=== PATIENT | male | born 2005 | race African-American/Black ===

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

== ENCOUNTER 2024-08-07 07:39 | Outpatient (CLI) | payer BC, SELFPAY ==
--- NOTE | 2024-08-07 | ECHO_ITS ---
Patient Info Name: Lonny Anaya Age: 18 years : 2005 Gender: Male Ht: 70 in Wt: 195 lbs BSA: 2.11 m2 HR: 61 bpm BP: 159 / 87 mmHg Technical Quality: Good Exam Date: 08/07/2024 7:58 AM Exam Location: Echo Lab Patient Status: Outpatient Admit Date: 08/07/2024 Staff Ordering Physician: Joni Metzger MD Outboard Motor Tester: Tigist Buck RDCS Attending Provider: Joni Metzger MD Referring Physician: Yassine BAIRD; Exam Type: CA echo doppler color flow Study Info Indications R06.02 - Shortness of breath Complete two-dimensional, color flow and Doppler transthoracic echocardiogram is performed. Strain analysis performed. Summary 1. Complete two-dimensional, color flow and Doppler transthoracic echocardiogram is performed. 2. Left ventricular chamber dimension is normal. 3. Left ventricular systolic function is normal, estimated at 60-65%. 4. There is mild asymmetric septal increased left ventricular wall thickness. 5. The left ventricular diastolic function is normal. 6. E/e' 6 is not elevated. 7. Global longitudinal strain is abnormal at -15.2%. 8. There is trace mitral valve regurgitation. 9. There is mild tricuspid valve regurgitation. 10. No pulmonary hypertension, estimated pulmonary arterial systolic pressure is 27 mmHg. 11. There is trace pulmonic regurgitation. Left Ventricle E/e' 6 is not elevated. Global longitudinal strain is abnormal at -15.2%. Left ventricular chamber dimension is normal. Left ventricular systolic function is normal, estimated at 60-65%. There is mild asymmetric septal increased left ventricular wall thickness. The left ventricular diastolic function is normal. Right Ventricle Right ventricular chamber dimension is normal. Right ventricular systolic function is normal. Left Atria Left atrial chamber dimension is normal. Right Atria Right atrial chamber dimension is normal. Aortic Valve The aortic valve is trileaflet. There is no aortic valve stenosis. There is no aortic valve regurgitation. Pulmonic Valve There is trace pulmonic regurgitation. Mitral Valve There is no mitral valve stenosis. There is trace mitral valve regurgitation. Tricuspid Valve There is mild tricuspid valve regurgitation. No pulmonary hypertension, estimated pulmonary arterial systolic pressure is 27 mmHg. Pericardium/Pleural There is no pericardial effusion. Inferior Vena Cava Normal inferior vena cava with >50% collapse upon inspiration consistent with normal right atrial pressure, 5 mmHg. Aorta The aortic root size at the sinus of Valsalva is normal. Left Ventricular Outflow Tract Name Value Normal LVOT 2D LVOT Diameter 2.1 cm LVOT Doppler LVOT Peak Gradient 3 mmHg LVOT Mean Gradient 2 mmHg LVOT VTI 18 cm LVOT VTI/AV VTI Ratio 0.9 LVOT Stroke Volume 66 ml LVOT CO 3.9 l/min LVOT CI 1.8 l/min/m2 Pulmonic Valve Name Value Normal
== END 2024-08-07 07:40 | disposition home or self-care (01) ==
PROVIDERS: PCP Emergency Medicine; Visit Provider Emergency Medicine
DX: I07.1 Rheumatic tricuspid insufficiency (principal)
CPT/HCPCS: 93306

== ENCOUNTER 2024-08-07 08:21 | Emergency (ER) | payer BC, SELFPAY ==
[2024-08-07 08:24] VITALS: BP 153/85; PULSE 81; RESP 18; TEMP 36.4; O2SAT 100
--- NOTE | 2024-08-07 08:46 | ED.MALEGU ---
HPI - Male Genitourinary General Chief complaint: Urogenital-Male Stated complaint: STD test Time Seen by Provider: 08/07/24 08:36 Source: patient Mode of arrival: ambulatory Limitations: no limitations History of Present Illness HPI Narrative: Patient presents requesting STI testing. Does not use condoms with all sexual encounters. Sexually active with women only. 1 sexual partner in the past month. No known exposure although he was concerned because she had a cold sore. Would like testing for all STIs including initially requested herpes testing. Engages in penile/vaginal and penile/oral intercourse. No penile/anal intercourse. No history of STIs. No fevers, penile/scrotal pain, no penile or oral lesions. Related Data Allergies Allergy/AdvReac Type Severity Reaction Status Date / Time No Known Allergies Allergy Verified 08/05/21 22:36 [facility] Past Medical History Medical History Hypertension Social History Social History Smoking status: Never smoker Alcohol intake: never Sexual Orientation (if Verbalized by the Patient): Straight or Heterosexual Exam Narrative: GENERAL: Well-appearing, well-nourished, and in no acute distress. HEAD: Normocephalic, atraumatic. EYES: Non injected, non icteric ENT: Nares clear, no rhinorrhea or epistaxis. No oral/lip/buccal lesions. Normal mucosa and tongue. NECK: Supple. CHEST: Speaking in full sentences. No respiratory distress. HEART: Regular rate and rhythm. . ABDOMEN: Soft, nondistended. : Normal male external genitalia. Circumcised. No penile discharge. No lesions on penis or scrotum. No scrotal edema/swelling. No tenderness to palpation. No inguinal lymphadenopathy. EXTREMITIES: Normal range of motion. No lower extremity edema. SKIN: Warm, dry, no rash. NEURO: No focal deficits. Alert and oriented x3. PSYCH: Normal mood and affect. Course Vital Signs Vital signs: Vital Signs Temperature 97.6 F 08/07/24 08:24 Pulse Rate 81 08/07/24 08:24 Respiratory Rate 18 08/07/24 08:24 Blood Pressure 153/85 H 08/07/24 08:24 Pulse Oximetry 100 08/07/24 08:24 Oxygen Delivery Room Air 10/17/24 08:24 Temperature 98.1 F 08/07/24 10:59 Pulse Rate 81 08/07/24 10:59 Respiratory Rate 12 08/07/24 10:59 Blood Pressure 137/82 08/07/24 10:59 Pulse Oximetry 99 08/07/24 10:59 Oxygen Delivery Room Air 08/07/24 08:24 MDM - Male Genitourinary MDM Narrative Medical decision making narrative: Patient presents requesting STI testing. Sexually active with 1 female partner in the past month. Asympatomatic and otherwise without known exposure though he was concerned because he thought she might have a cold sore/canker sore/oral or lip lesion. in the emergency department he is afebrile with vital signs notable for hypertension. Patient had requested herpes testing but discussed this, no active lesion. In addition to gonorrhea/chlamydia/trich testing, he is amenable and would like testing for syphillis and HIV. STI testing negative. Patient is advised on safe sex practices and he verifies understanding. No antibiotics given. Discharged home in stable condition. Lab Data Attestation: I reviewed the patient's lab results. Lab results narrative: Urinalysis unremarkable Labs: Lab Results 08/07/24 08/07/24 Range/Units 08:56 09:42 Urine Color Yellow (Yellow) Urine Appearance Clear (Clear) Urine pH 6.5 (5.0-9.0) Ur Specific Mcandrews 1.008 (1.001-1.035) Urine Protein Negative (Negative) mg/dL Urine Glucose (UA) Negative (Negative) mg/dL Urine Ketones Negative (Negative) mg/dL Ur Blood (Man) Negative (Negative) Urine Nitrate Negative (Negative) Urine Bilirubin Negative (Negative) Urine Urobilinogen 0.2 (<2.0) mg/dL Leukocyte Esterase Rfl Negative (Negative) SUZETTE/UL RP
[2024-08-07 09:16] LABS: Add Urine Microscopic? NO; Appearance Urine Clear (Clear); Bilirubin Urine Negative (Negative); Blood Urine Negative (Negative); Color Urine Yellow (Yellow); Glucose Urine UA Negative (Negative); Ketones Urine Negative (Negative); Leukocyte Esterase Ur Negative LEU/UL (Negative); Nitrate Urine Negative (Negative); Protein Urine Negative (Negative); Specific Grav Ur 1.008 (1.001-1.035); Urobilinogen Urine 0.2 mg/dL (<2.0); pH Urine 6.5 (5.0-9.0)
[2024-08-07 10:01] LABS: HIV 1/2 Ab P24 Ag Result Negative (Negative)
[2024-08-07 10:22] LABS: Trichomonas Vag PCR NOT DETECTED (NOT DETECTE)
[2024-08-07 10:22] LABS: Rapid Plasma Reagin Non-Reactive (NonReactive)
[2024-08-07 10:46] LABS: Chlamydia trachomatis NOT DETECTED (NOT DETECTE); Neisseria gonorrhoeae PCR NOT DETECTED (NOT DETECTE)
[2024-08-07 10:59] VITALS: BP 137/82; PULSE 81; RESP 12; TEMP 36.7; O2SAT 99
== END 2024-08-07 10:59 | disposition home or self-care (01) ==
PROVIDERS: Emergency Provider Student in an Organized Health Care Education/Training Program; PCP Emergency Medicine
DX: Z11.3 Encounter for screening for infections with a predominantly sexual mode of transmission (principal); I10 Essential (primary) hypertension
CPT/HCPCS: 36415; 81003; 86592; 86703; 87491; 87591; 87661; 99283; G0432

== ENCOUNTER 2024-08-22 09:24 | Outpatient (CLI) | payer BC, SELFPAY ==
--- NOTE | ~2024-08-22 | CT_ITS ---
EXAMINATION: CTA chest DATE: 08/22/2024 10:04 INDICATION: Other forms of dyspnea. TECHNIQUE: Computed tomographic angiography (CTA) of the chest was performed with 100 mL Omnipaque-35 0 intravenous contrast. Automated exposure control and iterative reconstruction technique were employ ed. The dose-length product was 430.69 mGy-cm. Maximum intensity projection 3D-reconstructions of the aorta and other arteries were constructed by the technologist on a separate workstation. COMPARISON: None. FINDINGS: There is no pneumonia or pleural effusion. No pleural effusion. The heart size is normal. N o pericardial effusion. Thoracic aorta is normal. There is no significant stenosis of celiac axis, stevens perior mesenteric artery, or the renal arteries. There is no pulmonary embolus. The bones are unremar kable. IMPRESSION: 1. No etiology for the patient's symptoms. Reviewed, dictated and finalized at location B.
[2024-08-22 09:54] LABS: Estimated Glomerular Filt Rate > 60
== END 2024-08-22 09:25 | disposition home or self-care (01) ==
PROVIDERS: PCP Emergency Medicine; Visit Provider Internal Medicine Cardiovascular Disease
DX: R06.09 Other forms of dyspnea (principal)
CPT/HCPCS: 71275; Q9967

== ENCOUNTER 2024-09-11 09:11 | Outpatient (CLI) | payer BC, SELFPAY ==
--- NOTE | 2024-09-11 09:16 | EST_ITS ---
Patient Info Name: Lonny Anaya Age: 18 years : 2005 Gender: Male Ht: 70 in Wt: 190 lbs BSA: 2.08 m2 Exam Date: 09/11/2024 9:31 AM Exam Location: Echo Lab Patient Status: Outpatient Admit Date: 09/11/2024 Staff Ordering Physician: Ricci Glass DO Attending Provider: Ricci Glass DO Exercise Technologist: Tigist Buck RDCS Exercise Physician: Ricci Glass DO Exam Type: CA stress test treadmill Study Info A treadmill exercise stress test was performed. Summary 1. 1. Negative Kike exercise stress test for ischemic ST changes by ECG criteria. 2. 2. Good functional capacity, achieving 14.9 METs of workload. 3. 3. Baseline hypertension. 4. 4. Appropriate HR response to exercise. 5. 5. Appropriate HR recovery at 1 minute post exercise. 6. 6. No imaging with stress testing. 7. 7. Patient informed of the above results. Protocol: Kike Stress ECG Details Stage: REST Duration (min): 1 min : 3 sec Speed (mph): 0.0 Grade (%): 0 HR (bpm): 73 SBP (mmHg): 143 DBP (mmHg): 71 METS: --- Stage: REST Duration (min): 48 min : 27 sec Speed (mph): 0.0 Grade (%): 0 HR (bpm): 74 SBP (mmHg): 143 DBP (mmHg): 71 METS: --- Stage: STAGE 1 Duration (min): 1 min : 0 sec Speed (mph): 1.7 Grade (%): 10 HR (bpm): 77 SBP (mmHg): 143 DBP (mmHg): 71 METS: --- Stage: STAGE 1 Duration (min): 2 min : 0 sec Speed (mph): 1.7 Grade (%): 10 HR (bpm): 79 SBP (mmHg): 143 DBP (mmHg): 71 METS: --- Stage: STAGE 1 Duration (min): 3 min : 0 sec Speed (mph): 1.7 Grade (%): 10 HR (bpm): 84 SBP (mmHg): 162 DBP (mmHg): 67 METS: --- Stage: STAGE 2 Duration (min): 1 min : 0 sec Speed (mph): 2.5 Grade (%): 12 HR (bpm): 89 SBP (mmHg): 162 DBP (mmHg): 67 METS: --- Stage: STAGE 2 Duration (min): 2 min : 0 sec Speed (mph): 2.5 Grade (%): 12 HR (bpm): 88 SBP (mmHg): 139 DBP (mmHg): 61 METS: --- Stage: STAGE 2 Duration (min): 3 min : 0 sec Speed (mph): 2.5 Grade (%): 12 HR (bpm): 97 SBP (mmHg): 139 DBP (mmHg): 61 METS: --- Stage: STAGE 3 Duration (min): 1 min : 0 sec Speed (mph): 3.4 Grade (%): 14 HR (bpm): 102 SBP (mmHg): 156 DBP (mmHg): 62 METS: --- Stage: STAGE 3 Duration (min): 2 min : 0 sec Speed (mph): 3.4 Grade (%): 14 HR (bpm): 104 SBP (mmHg): 156 DBP (mmHg): 62 METS: --- Stage: STAGE 3 Duration (min): 3 min : 0 sec Speed (mph): 3.4 Grade (%): 14 HR (bpm): 111 SBP (mmHg): 172 DBP (mmHg): 69 METS: --- Stage: STAGE 4 Duration (min): 1 min : 0 sec Speed (mph): 4.2 Grade (%): 16 HR (bpm): 131 SBP (mmHg): 172 DBP (mmHg): 69 METS: --- Stage: STAGE 4 Duration (min): 2 min : 0 sec Speed (mph): 4.2 Grade (%): 16 HR (bpm): 150 SBP (mmHg): 172 DBP (mmHg): 69 METS: --- Stage: STAGE 4 Duration (min): 3 min : 0 sec Speed (mph): 4.2 Grade (%): 16 HR (bpm): 154 SBP (mmHg): 163 DBP (mmHg): 70 METS: --- Stage: STAGE 5 Duration (min): 1 min : 0 sec Speed (mph): 5.0 Grade (%): 18 HR (bpm): 165 SBP (mmHg): 143 DBP (mmHg): 61 METS: --- Stage: STAGE 5 Duration (min): 2 min : 0 sec Speed (mph): 5.0 Grade (%): 18 HR (bpm): 177 SBP (mmHg): 143 DBP (mmHg): 61 METS: --- Stage: STAGE 5 Duration (min): 2 min : 0 sec Speed (mph): 5.0 Grade (%): 18 HR (bpm): 177 SBP (mmHg): 143 DBP (mmHg): 61 METS: --- Stage: RECOVERY Duration (min): 0 min : 59 sec Speed (mph): 0.0 Grade (%): 0 HR (bpm): 151 SBP (mmHg): 173 DBP (mmHg): 39 METS: --- Stage: RECOVERY Duration (min): 1 min : 59 sec Speed (mph): 0.0 Grade (%): 0 HR (bpm): 124 SBP (mmHg): 168 DBP (mmHg): 42 METS: --- Stage: RECOVERY Duration (min): 2 min : 59 sec Speed (mph): 0.0 Grade (%): 0 HR (bpm): 114 SBP (mmHg): 185 DBP (mmHg): 39 METS: --- Stage: RECOVERY Duration (min): 3 min : 59 sec Speed (mph): 0.0 Grade (%): 0 HR (bpm): 107 SBP (mmHg): 185 DBP (mmHg): 39 METS: --- Stage: RECOVERY Duration (min): 4 min : 59 sec Speed (mph): 0.0 Grade (%): 0 HR (bpm): 106 SBP (mmHg): 149 DBP (mmHg): 50 METS: --- Stage: RECOVERY Duration (min): 5 min : 59 sec Speed (mph): 0.0 Grade (%): 0 HR (bpm): 97 SBP (mmHg): 149 DBP (mmHg): 50 METS: --- Stage: RECOVERY Duration (min): 6 min : 48 sec Speed (mph): 0.0 Grade (%): 0 HR (bpm): 98 SBP (mmHg): 143 DBP (mmHg): 58 METS: --- Rest HR: 74 bpm Peak HR: 178 bpm Rest Sys BP: 143 mmHg Peak Sys BP: 185 mmHg Max Pred HR: 201 bpm % Max Pred HR: 89 % Target HR: 171 bpm Max RPP: 32,930 bpm*mmHg Walsh Score: -19 Termination Reason: Reached target heart rate or workload Cardiac Symptoms: Shortness of breath Max ST Seg Deviation: 6.60 mm Total Time: 14 min : 0 sec Rest Camacho BP: 71 mmHg Peak Camacho BP: 39 mmHg Angina Score: None Total METS: 14.9 Resting ECG Sinus rhythm. Stress ECG No ST changes. Arrhythmias None. Report Signatures
== END 2024-09-11 09:12 | disposition home or self-care (01) ==
LOC: ANHCARD 09:12
PROVIDERS: PCP Emergency Medicine; Visit Provider Internal Medicine Cardiovascular Disease
DX: R06.09 Other forms of dyspnea (principal); I10 Essential (primary) hypertension
CPT/HCPCS: 93017